=== PATIENT | male | born 1965 | race Caucasian/White ===

== ENCOUNTER 2018-12-25 06:55 | Emergency (ER) | payer SELFPAY | END 2018-12-25 07:45 | disposition home or self-care (01) | LOC: SCSER 06:55 | DX: M54.10 Radiculopathy, site unspecified (principal); F41.9 Anxiety disorder, unspecified; F17.210 Nicotine dependence, cigarettes, uncomplicated; Z79.899 Other long term (current) drug therapy | CPT/HCPCS: 99283 ==